=== PATIENT | female | born 1970 | race Two or more races ===

== ENCOUNTER → 2021-06-02 | Outpatient (CLI) | payer MEDICAID ==
[~2021-06-02] VITALS: Ht 170.2 cm; Wt 86.2 kg
== END | disposition home or self-care (01) ==
LOC: Rad HDHVI 08:38
PROVIDERS: ATTEND Internal Medicine Cardiovascular Disease
DX: R00.2 Palpitations (principal); R07.89 Other chest pain; R06.02 Shortness of breath
CPT/HCPCS: 78452; 93017; 96374; A9500

== ENCOUNTER → 2021-06-03 | Outpatient (CLI) | payer MEDICAID | END | disposition home or self-care (01) | LOC: Rad HDHVI 11:02 | PROVIDERS: ATTEND Internal Medicine Cardiovascular Disease | DX: R00.2 Palpitations (principal); R07.9 Chest pain, unspecified | CPT/HCPCS: 93306 ==

== ENCOUNTER → 2021-06-16 | Outpatient (CLI) | payer MEDICAID ==
[2021-06-16 11:15] LABS: Urine Bacteria MOD /hpf (None Seen); Urine Blood Negative /uL (Negative); Urine Mucus FEW (None Seen); Urine WBC 110 /hpf (0 - 5); Urine WBC Clumps PRESENT /hpf (None Seen)
== END | disposition home or self-care (01) ==
LOC: LAB 10:42
PROVIDERS: ATTEND Obstetrics & Gynecology Obstetrics
DX: N39.0 Urinary tract infection, site not specified (principal)
CPT/HCPCS: 81001; 87086

== ENCOUNTER → 2022-03-03 | Outpatient (CLI) | payer MEDICAID ==
[2022-03-03 10:20] LABS: Basophils # (auto) 0.1 10 ^3/uL (0-0.2); Basophils % (auto) 0.4 % (0.0-2.0); Eosinophils # (auto) 0.3 10 ^3/uL (0-0.8); Hematocrit 41.3 % (36.0-46.0); Hemoglobin 13.3 g/dL (12.2-16.2); Lymphocytes # (auto) 3.6 10 ^3/uL (0.4-5.4); Lymphocytes % (auto) 25.9 % (10.0-50.0); Mean Corpuscular Hemoglobin 25.9 pg (28.0-32.0); Mean Corpuscular Hgb Conc. 32.2 g/dL (32.0-36.0); Mean Corpuscular Volume 80.6 fL (80.0-100.0); Monocytes # (auto) 0.8 10 ^3/uL (0-1.3); Monocytes % (auto) 5.7 % (0.0-12.0); Neutrophils # (auto) 9.1 10 ^3/uL (1.6-8.6); Nucleated Red Blood Cells % 0.1 %; Red Blood Cells 5.12 10^6/uL (4.0-5.20); Red Cell Distribution Width 16.1 % (11.8-14.3); White Blood Cell 13.8 10^3/uL (4.4-10.8)
[2022-03-03 10:49] LABS: Chloride 102 mmol/L (98-107); Potassium 4.4 mmol/L (3.5-5.1); Sodium 136 mmol/L (136-145)
[2022-03-03 10:58] LABS: Alanine Aminotransferase 26 U/L (13-56); Albumin 3.8 g/dL (3.4-5.0); Alkaline Phosphatase 76 U/L (45-117); Anion Gap 9 (5-15); Aspartate Aminotransferase 13 U/L (15-37); Bilirubin, Direct < 0.1 mg/dL (0-0.2); Bilirubin, Total 0.3 mg/dL (0.2-1.0); Blood Urea Nitrogen 9 mg/dL (7-18); Calcium 9.3 mg/dL (8.5-10.1); Carbon Dioxide 25 mmol/L (21-32); Cholesterol 213 mg/dL (< 200); GFR African American 105 mL/min; GFR Non-African American 87 mL/min; Glucose 93 mg/dL (74-106); HDL Cholesterol 51 mg/dL (40-59); LDL Cholesterol 124 mg/dL (< 100); Total Protein 7.7 g/dL (6.4-8.2); Triglycerides 323 mg/dL (< 150)
[2022-03-03 11:25] LABS: Urine Bacteria FEW /hpf (None Seen); Urine Blood Negative /uL (Negative); Urine WBC 2 /hpf (0 - 5)
== END | disposition home or self-care (01) ==
LOC: LAB 09:10
PROVIDERS: ATTEND Internal Medicine
DX: Z12.11 Encounter for screening for malignant neoplasm of colon (principal); E78.5 Hyperlipidemia, unspecified; N39.0 Urinary tract infection, site not specified; E11.9 Type 2 diabetes mellitus without complications
CPT/HCPCS: 36415; 80053; 80061; 80076; 81001; 83880; 84443; 85025; 85379; 85652; 87086

== ENCOUNTER → 2022-05-05 | Outpatient (CLI) | payer MEDICAID ==
[2022-05-05 09:32] LABS: Eosinophils # (auto) 0.2 10 ^3/uL (0-0.8); Hemoglobin 12.9 g/dL (12.2-16.2); Lymphocytes # (auto) 3.4 10 ^3/uL (0.4-5.4); Mean Corpuscular Volume 79.6 fL (80.0-100.0); Neutrophils # (auto) 5.9 10 ^3/uL (1.6-8.6); Nucleated Red Blood Cells % 0.1 %
[2022-05-05 09:34] LABS: Basophils # (auto) 0.1 10 ^3/uL (0-0.2); Basophils % (auto) 0.7 % (0.0-2.0); Eosinophils % (auto) 1.8 % (0.0-7.0); Lymphocytes % (auto) 33.5 % (10.0-50.0); Mean Corpuscular Hemoglobin 25.7 pg (28.0-32.0); Mean Corpuscular Hgb Conc. 32.3 g/dL (32.0-36.0); Monocytes # (auto) 0.6 10 ^3/uL (0-1.3); Red Blood Cells 5.03 10^6/uL (4.0-5.20); Red Cell Distribution Width 15.5 % (11.8-14.3); White Blood Cell 10.2 10^3/uL (4.4-10.8)
== END | disposition home or self-care (01) ==
LOC: LAB 09:18
PROVIDERS: ATTEND Internal Medicine
DX: E11.9 Type 2 diabetes mellitus without complications (principal); N94.9 Unspecified condition associated with female genital organs and menstrual cycle; D72.829 Elevated white blood cell count, unspecified
CPT/HCPCS: 36415; 82043; 83036; 85025

== ENCOUNTER → 2022-11-25 | Outpatient (CLI) | payer MEDICAID ==
[2022-11-25 12:35] LABS: Alanine Aminotransferase 23 U/L (13-56); Albumin 3.5 g/dL (3.4-5.0); Alkaline Phosphatase 66 U/L (45-117); Aspartate Aminotransferase 14 U/L (15-37); Bilirubin, Total 0.3 mg/dL (0.2-1.0); Total Protein 7.5 g/dL (6.4-8.2)
[2022-11-26 17:01] LABS: Bilirubin, Direct < 0.1 mg/dL (0-0.2); Cholesterol 171 mg/dL (< 200); HDL Cholesterol 46 mg/dL (40-59); LDL Cholesterol 99 mg/dL (< 100); Triglycerides 172 mg/dL (< 150)
== END | disposition home or self-care (01) ==
LOC: LAB 07:19
PROVIDERS: ATTEND Internal Medicine
DX: E11.9 Type 2 diabetes mellitus without complications (principal); E78.5 Hyperlipidemia, unspecified
CPT/HCPCS: 36415; 80061; 80076; 82043; 83036; 84443

== ENCOUNTER → 2023-06-16 | Outpatient (CLI) | payer MEDICAID ==
[2023-06-16 09:30] LABS: Alanine Aminotransferase 28 U/L (7-40); Albumin 4.7 g/dL (3.2-4.8); Alkaline Phosphatase 84 U/L (46-116); Aspartate Aminotransferase 23 U/L (13-40); Bilirubin, Direct < 0.1 mg/dL (<0.3); Bilirubin, Total 0.4 mg/dL (0.2-1.0); Cholesterol 201 mg/dL (< 200); HDL Cholesterol 53 mg/dL (40-59); LDL Cholesterol 115 mg/dL (< 100); Total Protein 7.7 g/dL (5.7-8.2); Triglycerides 283 mg/dL (< 150)
== END | disposition home or self-care (01) ==
LOC: LAB 07:59
PROVIDERS: ATTEND Internal Medicine
DX: E11.9 Type 2 diabetes mellitus without complications (principal); E78.5 Hyperlipidemia, unspecified
CPT/HCPCS: 36415; 80061; 80076; 83036; 84443

== ENCOUNTER → 2024-02-16 | Outpatient (CLI) | payer MEDICAID ==
[2024-02-16 12:13] LABS: Basophils # (auto) 0.1 10 ^3/uL (0-0.2); Eosinophils # (auto) 0.3 10 ^3/uL (0-0.8); Lymphocytes # (auto) 3.1 10 ^3/uL (0.4-5.4); Mean Corpuscular Hgb Conc. 32.6 g/dL (32.0-36.0); Neutrophils % (auto) 55.5 % (37.0-80.0)
[2024-02-16 12:15] LABS: Basophils % (auto) 0.6 % (0.0-2.0); Eosinophils % (auto) 3.5 % (0.0-7.0); Hematocrit 36.9 % (36.0-46.0); Lymphocytes % (auto) 32.6 % (10.0-50.0); Mean Corpuscular Hemoglobin 24.4 pg (28.0-32.0); Mean Corpuscular Volume 74.9 fL (80.0-100.0); Monocytes # (auto) 0.7 10 ^3/uL (0-1.3); Monocytes % (auto) 7.8 % (0.0-12.0); Neutrophils # (auto) 5.3 10 ^3/uL (1.6-8.6); Nucleated Red Blood Cells % 0.1 %; Platelet Count (auto) 339 10^3/uL (140-450); Red Blood Cells 4.93 10^6/uL (4.0-5.20); Red Cell Distribution Width 17.5 % (11.8-14.3); White Blood Cell 9.6 10^3/uL (4.4-10.8)
[2024-02-16 12:39] LABS: Alanine Aminotransferase 16 U/L (7-40); Albumin 4.5 g/dL (3.2-4.8); Alkaline Phosphatase 71 U/L (46-116); Anion Gap 7 (5-15); Aspartate Aminotransferase 10 U/L (13-40); BUN/Creatinine Ratio 12.7 (10.0-20.0); Bilirubin, Total 0.4 mg/dL (0.2-1.0); Blood Urea Nitrogen 10 mg/dL (9-23); Calcium 9.6 mg/dL (8.7-10.4); Carbon Dioxide 25 mmol/L (20-30); Chloride 106 mmol/L (98-107); Cholesterol 169 mg/dL (< 200); Glucose 97 mg/dL (74-106); HDL Cholesterol 50 mg/dL (40-59); LDL Cholesterol 102 mg/dL (< 100); Potassium 4.1 mmol/L (3.5-5.1); Sodium 138 mmol/L (136-145); Total Protein 7.2 g/dL (5.7-8.2); Triglycerides 160 mg/dL (< 150)
[2024-02-16 12:40] LABS: Follicle Stimulating Hormone 7.98 IU/L (SEE BELOW); Leuteinizing Hormone 3.9 IU/L
== END | disposition home or self-care (01) ==
LOC: LAB 11:28
PROVIDERS: ATTEND Internal Medicine
DX: E11.9 Type 2 diabetes mellitus without complications (principal); R00.2 Palpitations; E78.5 Hyperlipidemia, unspecified
CPT/HCPCS: 36415; 80053; 80061; 82670; 83001; 83002; 83036; 84144; 84443; 85025

== ENCOUNTER 2024-10-28 05:34 | Emergency (ER) | payer MEDICAID | END 2024-10-28 05:45 | disposition left against medical advice (07) | LOC: ER 05:34 | DX: R11.2 Nausea with vomiting, unspecified (principal); Z53.21 Procedure and treatment not carried out due to patient leaving prior to being seen by health care provider ==

== ENCOUNTER 2025-02-14 06:57 | Outpatient (CLI) | payer MEDICAID ==
[2025-02-14 07:28] LABS: Hematocrit 37.1 % (36.0-46.0); Hemoglobin 11.7 g/dL (12.2-16.2); Mean Corpuscular Hemoglobin 22.4 pg (28.0-32.0); Mean Corpuscular Volume 71.1 fL (80.0-100.0); Nucleated Red Blood Cells % 0.0 %
[2025-02-14 07:48] LABS: Alanine Aminotransferase 18 U/L (7-40); Albumin 4.6 g/dL (3.2-4.8); Alkaline Phosphatase 73 U/L (46-116); Anion Gap 7 (5-15); BUN/Creatinine Ratio 16.4 (10.0-20.0); Bilirubin, Total 0.4 mg/dL (0.2-1.0); Blood Urea Nitrogen 12 mg/dL (9-23); Calcium 9.0 mg/dL (8.7-10.4); Carbon Dioxide 25 mmol/L (20-31); Glucose 97 mg/dL (74-106); Potassium 4.0 mmol/L (3.5-5.1); Sodium 140 mmol/L (136-145); Total Protein 7.8 g/dL (5.7-8.2)
[2025-02-14 07:51] LABS: Chloride 108 mmol/L (98-107)
[2025-02-14 07:58] LABS: Microalb/Creat Ratio, Urine 3.0
[2025-02-14 10:25] LABS: Total Iron Binding Capacity 418.0 ug/dL (250-425)
[2025-02-14 10:28] LABS: Iron 31.0 ug/dL (50-170)
== END 2025-02-14 17:00 | disposition home or self-care (01) ==
LOC: LAB 06:57
PROVIDERS: ATTEND Internal Medicine
DX: E11.9 Type 2 diabetes mellitus without complications (principal); E78.5 Hyperlipidemia, unspecified; D64.9 Anemia, unspecified; R00.2 Palpitations
CPT/HCPCS: 36415; 80053; 82043; 82570; 82728; 83036; 83540; 83550; 85025

== ENCOUNTER 2025-04-18 09:36 | Outpatient (CLI) | payer MEDICAID ==
[2025-04-18 10:21] LABS: Hemoglobin 11.4 g/dL (12.2-16.2); Nucleated Red Blood Cells % 0.1 %
[2025-04-18 10:22] LABS: Hematocrit 36.0 % (36.0-46.0); Mean Corpuscular Hemoglobin 22.6 pg (28.0-32.0); Mean Corpuscular Volume 71.5 fL (80.0-100.0)
[2025-04-18 11:01] LABS: Follicle Stimulating Hormone 12.36 IU/L (SEE BELOW)
== END 2025-04-18 17:00 | disposition home or self-care (01) ==
LOC: LAB 09:36
PROVIDERS: ATTEND Obstetrics & Gynecology
DX: N93.9 Abnormal uterine and vaginal bleeding, unspecified (principal)
CPT/HCPCS: 36415; 82670; 83001; 83002; 84403; 84443; 85025

== ENCOUNTER → 2025-04-18 | Outpatient (CLI) | payer MEDICAID | END | disposition home or self-care (01) | LOC: LAB 10:53 | PROVIDERS: ATTEND Obstetrics & Gynecology | DX: N93.9 Abnormal uterine and vaginal bleeding, unspecified (principal) ==

== ENCOUNTER 2025-05-04 11:01 | Outpatient (CLI) | payer MEDICAID ==
[2025-05-04 11:46] LABS: Hemoglobin 12.5 g/dL (12.2-16.2)
[2025-05-04 11:49] LABS: Hematocrit 39.8 % (36.0-46.0); Mean Corpuscular Hemoglobin 23.1 pg (28.0-32.0); Mean Corpuscular Volume 73.3 fL (80.0-100.0); Nucleated Red Blood Cells % 0.1 %
== END 2025-05-04 17:00 | disposition home or self-care (01) ==
LOC: LAB 11:01
PROVIDERS: ATTEND Internal Medicine
DX: E11.9 Type 2 diabetes mellitus without complications (principal); D64.9 Anemia, unspecified
CPT/HCPCS: 36415; 82306; 83036; 84443; 85025